=== PATIENT | female | born 1990 | race Caucasian/White ===

== ENCOUNTER 2018-04-30 16:37 | Emergency (ER) | payer OTHER ==
--- NOTE | 2018-04-30 17:42 | PHYS DOC ---
Adult General Chief Complaint Chief Complaint: HYPERTENSION HPI HPI 27-year-old female presents with hypertension and headache. Patient delivered a baby one week ago without complication. She has had intermittent hypertension the last 2 days 170s over 100. She also has had a headache since yesterday that has not gone away. She describes it as a global pressure. She has tried ibuprofen and it has not helped. Patient's vaginal bleeding has significantly decreased the last 36 hours and this is different than her first . She admits to anxiety at baseline these symptoms are very concerned. Her GLASS DRILLER advised she come to the emergency room for the hypertension. During my interview , the patient noticed she has urticaria forming on her neck and chest. She denies pruritus. She has changed skin lotions recently but has not had any problem prior to just now. She denies fever or chills. Review of Systems Review of Systems Constitutional: Denies fever or chills [] Eyes: Denies change in visual acuity, redness, or eye pain [] HENT: Denies nasal congestion or sore throat [] Respiratory: Denies cough or shortness of breath [] Cardiovascular: No additional information not addressed in HPI [] GI: Denies abdominal pain, nausea, vomiting, bloody stools or diarrhea [] : Denies dysuria or hematuria. vaginal bleeding--decreased [] Musculoskeletal: Denies back pain or joint pain [] Integument: urticaria [] Neurologic: Headache. No focal weakness or sensory changes [] Endocrine: Denies polyuria or polydipsia [] All other systems were reviewed and found to be within normal limits, except as documented in this note. Allergies Allergies Allergies Coded Allergies Type Severity Reaction Last Updated Verified No Known Drug Allergies 04/30/18 No Physical Exam Physical Exam Constitutional: Well developed, well nourished, no acute distress, non-toxic appearance. [] HENT: Normocephalic, atraumatic, bilateral external ears normal, oropharynx moist, no oral exudates, nose normal. [] Eyes: PERRLA, EOMI, conjunctiva normal, no discharge. [] Neck: Normal range of motion, no tenderness, supple, no stridor. [] Cardiovascular:Heart rate regular rhythm, no murmur [] Lungs & Thorax: Bilateral breath sounds clear to auscultation [] Abdomen: Bowel sounds normal, soft, no tenderness, no masses, no pulsatile masses. [] Skin: Erythematous patches on the patient's chest and back, some with central clearing consistent with urticaria.[] Back: No tenderness, no CVA tenderness. [] Extremities: No tenderness, no cyanosis, no clubbing, ROM intact, no edema. [] Neurologic: Alert and oriented X 3, normal motor function, normal sensory function, no focal deficits noted. [] Psychologic: Affect anxious, judgement normal, mood normal. [] Current Patient Data Lab Results Laboratory Tests Test 04/30/18 17:00 Glucose (Fingerstick) 111 mg/dL (70-99) H EKG EKG [] Radiology/Procedures Radiology/Procedures [] Impressions: 1. Post Delivery 1 week 2. Hypertension 3. Hypokalemia 3.3 4. Headache. Course & Med Decision Making Course & Med Decision Making Pertinent Labs and Imaging studies reviewed. (See chart for details) I am signing out the patient to Dr. Goldstein at 1800. Labs and treatment for headache and hypertension are pending. He will determine final disposition. See Dr. Hernandez chart for details- Pt. no hyperflexion, no gross protein in urine. Mild hypokalemia. Pt. reports marked improvement of headache. Clonidine patch 0.2 will be placed. Pt. call in am for follow up. Wear patch until follow up. Push fruit juices. Return if any concerns. [] Dragon Disclaimer Dragon Disclaimer This electronic medical record was generated, in whole or in part, using a voice recognition dictation system. Departure Departure: Referrals: RIVERA ODONNELL MD (PCP) YOANA HERNANDEZ DO Apr 30, 2018 17:41 BIN GOLDSTEIN MD Apr 30, 2018 19:35
[2018-04-30] MEDS ORDERED: KETOROLAC 30 MG/ML VIAL. IV ONE (17:45)
[2018-04-30] MEDS ORDERED: METOCLOPRAMIDE HCL 10 MG/2 ML VIAL. IV ONE (17:45)
[2018-04-30] MEDS ORDERED: diphenhydrAMINE 50 MG/ML VIAL IVP ONE (17:45)
[2018-04-30] MEDS ORDERED: IV NORMAL SALINE 1,000ML 1,000 ML IV ONE (17:45)
[2018-04-30 18:40] VITALS: BP 156/97
[2018-04-30 18:41] LABS: BASO # 0.1 x10^3/uL (0.0-0.2); BASO % 1 % (0-3); EOS # 0.1 x10^3/uL (0.0-0.7); EOS % 2 % (0-3); HEMATOCRIT 43.4 % (36.0-47.0); HEMOGLOBIN 15.1 g/dL (12.0-15.5); LYMPH # 1.1 x10^3/uL (1.0-4.8); LYMPH % 15 % (24-48); MEAN CORPUSCULAR HEMOGLOBIN 31 pg (25-35); MEAN CORPUSCULAR HGB CONC 35 g/dL (31-37); MEAN CORPUSCULAR VOLUME 89 fL (79-100); MONO # 0.6 x10^3/uL (0.0-1.1); MONO % 8 % (0-9); NEUT # 5.8 x10^3uL (1.8-7.7); NEUT % 76 % (31-73); PLATELET COUNT 232 x10^3/uL (140-400); RED BLOOD COUNT 4.89 x10^6/uL (3.50-5.40); RED CELL DISTRIBUTION WIDTH 14.2 % (11.5-14.5); WHITE BLOOD COUNT 7.6 x10^3/uL (4.0-11.0)
[2018-04-30 18:56] LABS: ALBUMIN 3.2 g/dL (3.4-5.0); ALBUMIN/GLOBULIN RATIO 0.8 (1.0-1.7); CREATININE 0.6 mg/dL (0.6-1.0); GFR 121.8; MAGNESIUM 1.9 mg/dL (1.8-2.4); POTASSIUM 3.3 mmol/L (3.5-5.1); TOTAL BILIRUBIN 0.3 mg/dL (0.2-1.0); TOTAL PROTEIN 7.2 g/dL (6.4-8.2)
[2018-04-30 19:06] LABS: CLARITY,URINE CLEAR; GLUCOSE,URINE NEG (NEG)
[2018-04-30 19:07] LABS: BACTERIA,URINE 0 /HPF (0-FEW); BILIRUBIN,URINE NEG (NEG); COLOR,URINE STRAW; NITRITE,URINE NEG (NEG); RBC,URINE RARE /HPF (0-2); SQUAMOUS EPITHELIAL CELL,UR FEW /LPF; UROBILINOGEN,URINE 0.2 mg/dL (0.2 mg/dL); WBC,URINE OCC /HPF (0-4)
[2018-04-30] MEDS ORDERED: cloNIDine TTS-2 1 PATCH PATCH TD ONE (19:30)
== END 2018-04-30 19:42 | disposition home or self-care (01) ==
LOC: ER 16:37
DX: O16.5 Unspecified maternal hypertension, complicating the puerperium (principal); O99.73 Diseases of the skin and subcutaneous tissue complicating the puerperium; E87.6 Hypokalemia; L50.9 Urticaria, unspecified; Z98.890 Other specified postprocedural states
CPT/HCPCS: 36415; 80053; 81001; 82947; 83735; 85025; 96374; 96375; 99283; J1200; J1885; J2765; J7030

== ENCOUNTER 2021-05-22 12:30 | Emergency (ER) | payer OTHER ==
[~2021-05-22] VITALS: Ht 167.6 cm; Wt 53.7 kg
[2021-05-22 12:30] VITALS: BP 126/80
[2021-05-22] MEDS ORDERED: KETOROLAC 15 MG/ML VIAL. IVP ONE (13:15)
[2021-05-22] MEDS ORDERED: IV NORMAL SALINE 1,000ML 1,000 ML IV ONE (13:15)
[2021-05-22 13:43] LABS: BACTERIA,URINE 0 /HPF (0-FEW); BILIRUBIN,URINE NEG (NEG); CLARITY,URINE CLEAR; COLOR,URINE YELLOW; GLUCOSE,URINE NEG (NEG); NITRITE,URINE NEG (NEG); SQUAMOUS EPITHELIAL CELL,UR MOD /LPF; UROBILINOGEN,URINE 0.2 mg/dL (0.2 mg/dL)
[2021-05-22 14:32] LABS: BASO % 1 % (0-3); EOS % 1 % (0-3); HEMATOCRIT 38.4 % (36.0-47.0); HEMOGLOBIN 12.7 g/dL (12.0-15.5); LYMPH # 1.1 x10^3/uL (1.0-4.8); LYMPH % 20 % (24-48); MEAN CORPUSCULAR HEMOGLOBIN 29 pg (25-35); MEAN CORPUSCULAR HGB CONC 33 g/dL (31-37); MEAN CORPUSCULAR VOLUME 89 fL (79-100); MONO # 0.4 x10^3/uL (0.0-1.1); MONO % 7 % (0-9); NEUT # 3.8 x10^3uL (1.8-7.7); NEUT % 72 % (31-73); PLATELET COUNT 227 x10^3/uL (140-400); RED BLOOD COUNT 4.32 x10^6/uL (3.50-5.40); RED CELL DISTRIBUTION WIDTH 14.9 % (11.5-14.5); WHITE BLOOD COUNT 5.3 x10^3/uL (4.0-11.0)
[2021-05-22 14:33] LABS: CREATININE 0.6 mg/dL (0.6-1.0); POTASSIUM 3.9 mmol/L (3.5-5.1)
--- NOTE | 2021-05-22 14:49 | RAD ---
EXAM: Abdomen and pelvis CT without intravenous contrast. HISTORY: Right flank pain. TECHNIQUE: Computed tomographic images of the abdomen and pelvis were obtained without contrast. Mult iplanar reformatting was performed. *One or more of the following individualized dose reduction techniques were utilized for this examina tion: 1. Automated exposure control. 2. Adjustment of the mA and/or kV according to patient size. 3. Use of iterative reconstruction technique. COMPARISON: None. FINDINGS: Evaluation of the lower thorax demonstrates a 2 mm nodule within the right lower lobe (seri es 2, image 3). There is a chest wall pectus deformity. No hepatic lesion is seen. The gallbladder is contracted due to the postprandial status the patient. The pancreas, spleen and adrenal glands are u nremarkable. There is no evidence of nephroureterolithiasis. There is no hydronephrosis. The bladder is unremarkab le. There is no appendicitis. There is no bowel obstruction. The bladder, uterus and adnexal regions are unremarkable. The aorta is normal in caliber. There is no acute or suspicious osseous finding. IMPRESSION: 1. No acute abdominal or pelvic finding. 2. Tiny right lower lobe pulmonary nodule. This likely benign and of no clinical significance in a pa tient of this age. 3. Incidental chest wall pectus deformity. Electronically signed by: Joelle Dove MD (05/22/2021 2:47 PM) [facility]
--- NOTE | 2021-05-22 14:52 | PHYS DOC ---
Past History Past Medical History: No Pertinent History (LORI GONZALEZ APRN) Past Surgical History: No Surgical History (LORI GONZALEZ APRN) Alcohol Use: Rarely Drug Use: None (LORI GONZALEZ APRN) General Adult EDM: Chief Complaint: FLANK PAIN HPI: HPI: Patient is a 30-year-old female who presents with right-sided flank pain that radiates into her right lower abdomen. Patient states that pain has been coming and going for the last week. Denies fever, denies nausea/vomiting, denies pain with urination. Patient denies taking anything at home for pain. Patient states she went to her DIE MOUNTER yesterday and had left a urine sample. Patient reports they called back and said she was positive for blood in her urine. LMP was 04/30. No medical history. (LROI GONZALEZ APRN) Review of Systems: Review of Systems: ROS At least 10 ROS systems have been reviewed and are negative except as documented in the HPI. General: Negative except as outlined in HPI above. Skin: Negative except as outlined in HPI above. HEENT: Negative except as outlined in HPI above. Neck: Negative except as outlined in HPI above. Respiratory: Negative except as outlined in HPI above.. Cardiovascular: Negative except as outlined in HPI above. Abdomen: Negative except as outlined in HPI above. : Negative except as outlined in HPI above. Back/MSK: Negative except as outlined in HPI above. Neuro: Negative except as outlined in HPI above. Psych: Negative except as outlined in HPI above. (LORI GONZALEZ APRN) Current Medications: Current Meds: Current Medications Medications (Trade) Dose Ordered Sig/Cristopher Start Time Stop Time Status Last Admin Dose Admin Ketorolac Tromethamine (Toradol 15mg Vial) 15 mg 1X ONCE 05/22/21 13:15 05/22/21 13:27 DC Sodium Chloride 1,000 ml @ 1,000 mls/hr 1X ONCE 05/22/21 13:15 05/22/21 14:14 DC (LORI GONZALEZ APRN) Allergies: Allergies: Allergies Coded Allergies Type Severity Reaction Last Updated Verified No Known Drug Allergies 04/30/18 No (LORI GONZALEZ APRN) Physical Exam: PE: Constitutional: Well developed, well nourished, no acute distress, non-toxic appearance. [] HENT: Normocephalic, atraumatic, bilateral external ears normal, oropharynx moist, no oral exudates, nose normal. [] Eyes: PERRLA, EOMI, conjunctiva normal, no discharge. [] Neck: Normal range of motion, no tenderness, supple, no stridor. [] Cardiovascular:Heart rate regular rhythm, no murmur [] Lungs & Thorax: Bilateral breath sounds clear to auscultation [] Abdomen: Bowel sounds normal, soft, no tenderness Skin: Warm, dry, no erythema, no rash. [] Back: No tenderness, right CVA tenderness. [] Extremities: No tenderness, no cyanosis, no clubbing, ROM intact, no edema. [] Neurologic: Alert and oriented X 3, normal motor function, normal sensory funct ion, no focal deficits noted. [] Psychologic: Affect normal, judgement normal, mood normal. [] (LORI GONZALEZ APRN) Current Patient Data: Labs: Laboratory Tests Test 05/22/21 12:47 05/22/21 12:56 05/22/21 14:06 Urine Collection Type Unknown Urine Color Yellow Urine Clarity Clear Urine pH 5.5 Urine Specific [place] >=1.030 Urine Protein Neg (NEG-TRACE) Urine Glucose (UA) Neg mg/dL (NEG) Urine Ketones (Stick) Neg mg/dL (NEG) Urine Blood Trace (NEG) Urine Nitrite Neg (NEG) Urine Bilirubin Neg (NEG) Urine Urobilinogen Dipstick 0.2 mg/dL (0.2 mg/dL) Urine Leukocyte Esterase Neg (NEG) Urine RBC 1-2 /HPF (0-2) Urine WBC 1-4 /HPF (0-4) Urine Squamous Epithelial Cells Mod /LPF Urine Bacteria 0 /HPF (0-FEW) Urine Mucus Slight /LPF POC Urine HCG, Qualitative hcg negative (Negative) White Blood Count 5.3 x10^3/uL (4.0-11.0) Red Blood Count 4.32 x10^6/uL (3.50-5.40) Hemoglobin 12.7 g/dL (12.0-15.5) Hematocrit 38.4 % (36.0-47.0) Mean Corpuscular Volume 89 fL (79-100) Mean Corpuscular Hemoglobin 29 pg (25-35) Mean Corpuscular Hemoglobin Concent 33 g/dL (31-37) Red Cell Distribution Width 14.9 % (11.5-14.5) H Platelet Count 227 x10^3/uL (140-400) Neutrophils (%) (Auto) 72 % (31-73) Lymphocytes (%) (Auto) 20 % (24-48) L Monocytes (%) (Auto) 7 % (0-9) Eosinophils (%) (Auto) 1 % (0-3) Basophils (%) (Auto) 1 % (0-3) Neutrophils # (Auto) 3.8 x10^3uL (1.8-7.7) Lymphocytes # (Auto) 1.1 x10^3/uL (1.0-4.8) Monocytes # (Auto) 0.4 x10^3/uL (0.0-1.1) Eosinophils # (Auto) 0.0 x10^3/uL (0.0-0.7) Basophils # (Auto) 0.0 x10^3/uL (0.0-0.2) Sodium Level 138 mmol/L (136-145) Potassium Level 3.9 mmol/L (3.5-5.1) Chloride Level 103 mmol/L (98-107) Carbon Dioxide Level 28 mmol/L (21-32) Anion Gap 7 (6-14) Blood Urea Nitrogen 15 mg/dL (7-20) Creatinine 0.6 mg/dL (0.6-1.0) Estimated GFR (Cockcroft-Gault) 119.0 Glucose Level 84 mg/dL (70-99) Calcium Level 9.0 mg/dL (8.5-10.1) Vital Signs: Vital Signs Date Time Temp Pulse Resp B/P (MAP) Pulse Ox O2 Delivery O2 Flow Rate FiO2 05/22/21 12:30 104 16 126/80 (95) 99 Room Air (LORI GONZALEZ APRN) EKG: EKG: [] (LORI GONZALEZ APRN) Radiology/Procedures: Radiology/Procedures: []EXAM: Abdomen and pelvis CT without intravenous contrast. HISTORY: Right flank pain. TECHNIQUE: Computed tomographic images of the abdomen and pelvis were obtained without contrast. Multiplanar reformatting was performed. *One or more of the following individualized dose reduction techniques were utilized for this examination: 1. Automated exposure control. 2. Adjustment of the mA and/or kV according to patient size. 3. Use of iterative reconstruction technique. COMPARISON: None. FINDINGS: Evaluation of the lower thorax demonstrates a 2 mm nodule within the right lower lobe (series 2, image 3). There is a chest wall pectus deformity. No hepatic lesion is seen. The gallbladder is contracted due to the postprandial status the patient. The pancreas, spleen and adrenal glands are unremarkable. There is no evidence of nephroureterolithiasis. There is no hydronephrosis. The bladder is unremarkable. There is no appendicitis. There is no bowel obstruction. The bladder, uterus and adnexal regions are unremarkable. The aorta is normal in caliber. There is no acute or suspicious osseous finding. IMPRESSION: 1. No acute abdominal or pelvic finding. 2. Tiny right lower lobe pulmonary nodule. This likely benign and of no clinical significance in a patient of this age. 3. Incidental chest wall pectus deformity. Electronically signed by: Joelle Dove MD (05/22/2021 2:47 PM) [facility] (LORI GONZALEZ APRN) Heart Score: C/O Chest Pain: No Risk Factors: Risk Factors: DM, Current or recent (<one month) smoker, HTN, HLP, family history of CAD, obesity. Risk Scores: Score 0 - 3: 2.5% MACE over next 6 weeks - Discharge Home Score 4 - 6: 20.3% MACE over next 6 weeks - Admit for Clinical Observation Score 7 - 10: 72.7% MACE over next 6 weeks - Early Invasive Strategies (LORI GONZALEZ APRN) Course & Med Decision Making: Course & Med Decision Making Pertinent Labs and Imaging studies reviewed. (See chart for details) [] 30-year-old female presents with right-sided flank pain that radiates into her right lower abdomen. Afebrile. Denies dysuria or any other vaginal comp laints. Work-up in ER consist of blood work, urinalysis, urine , CT abdomen without contrast, Toradol for discomfort. UA negative for infection. Positive trace blood. CT abdomen pelvis is unremarkable. Discussed results with patient. Advised pat ient she may have already passed a kidney stone and having residual pain. Patient should take ibuprofen at home for discomfort. Discussed return precautions. Patient is hemodynamically stable upon disposition. (GONZALEZ,LORI Santos Disclaimer: Tom Disclaimer: This electronic medical record was generated, in whole or in part, using a voice recognition dictation system. (LORI GONZALEZ APRN) Attending Co-Sign The patient was seen and interviewed as well as examined at the bedside. The chart was reviewed. The case was discussed. Agree with the plan of care. (YOANA HERNANDEZ DO) Departure Departure: Impression: Primary Impression: Flank pain Additional Impression: Hematuria Qualified Codes: R31.9 - Hematuria, unspecified Disposition: HOME / SELF CARE / HOMELESS Condition: STABLE Referrals: JOELLE ODONNELL MD (PCP) Patient Instructions: Flank Pain, [id number] Additional Instructions: You were seen in the emergency room for right-sided flank pain. CT of your abdomen was unremarkable. Your urine was positive for blood but no signs of infection. You can take ibuprofen at home for pain. Please follow-up with your PCP if symptoms do not resolve. Return to the emergency room with worsening symptoms or concerns. EMERGENCY DEPARTMENT GENERAL DISCHARGE INSTRUCTIONS Thank you for coming to [facility] (ED) today and trusting us with you care. We trust that you had a positivie experience in our Emergency Department. If you wish to speak to the department management, you may call the director at [phone]. YOUR FOLLOW UP INSTRUCTIONS ARE FOLLOWS: 1. Do you have a private Doctor? If you do not have a private doctor, please ask for a resource list of physicians or clinics that may be able to assist you with follow up care. 2. The Emergency Physician has interpreted your x-rays. The X-Ray specialist will also review them. If there is a change in the findings, you will be notified in 48 hours when at all possible. 3. A lab test or culture has been done, your results will be reviewed and you will be notified if you need a change in treatment. ADDITIONAL INSTRUCTIONS AND INFORMATION: 1. Your care today has been supervised by a physician who is specially trained in emergency care. Many problems require more than one evaluation for a complete diagnosis and treatment. We recommend that you schedule your follow up appointment as recommended to ensure complete treatment of you illness or injury. If you are unable to obtain follow up care and continue to have a problem, or if your condition worsens, we recommend that you return to the ED. 2. We are not able to safely determine your condition over the phone nor are we able to give sound medical advice over the phone. For these safety reasons, if you call for medical advice we will ask you to come to the ED for further evaluation. 3. If you have any questions regarding these discharge instructions please call the ED at [phone]. SAFETY INFORMATION: In the interest of safety, wellness, and injury prevention; we encourage you to wear your sealbelt, if you smoke; quite smoking, and we encourage family to use a protective helmet for bicycling and other sporting events that present an increased risk for head injury. IF YOUR SYMPTOMS WORSEN OR NEW SYMPTOMS DEVELOP, OR YOU HAVE CONCERNS ABOUT YOUR CONDITION; OR IF YOUR CONDITION WORSENS WHILE YOU ARE WAITING FOR YOUR FOLLOW UP APPOINTMENT; EITHER CONTACT YOUR PRIMARY CARE DOCTOR, THE PHYSICIAN WHOSE NAME AND NUMBER YOU WERE GIVEN, OR RETURN TO THE ED IMMEDIATELY. Scripts Dexamethasone (DEXAMETHASONE) 4 Mg Tablet 4 TAB PO DAILY for SCIATICA for 7 Days, #7 TAB Prov: LORI GONZALEZ APRN 05/22/21 Cyclobenzaprine Hcl (CYCLOBENZAPRINE HCL) 10 Mg Tablet 1 TAB PO TID for SCIATICA for 5 Days, #15 TAB Prov: LORI GONZALEZ APRN 05/22/21 LORI GONZALEZ APRN May 22, 2021 14:52 YOANA HERNANDEZ DO May 24, 2021 10:25
[2021-05-22] MEDS ORDERED: CYCL10TA19 PO (15:25)
[2021-05-22] MEDS ORDERED: DEXA4TAB PO (15:30)
== END 2021-05-22 15:29 | disposition home or self-care (01) ==
LOC: ER 12:30
DX: R10.9 Unspecified abdominal pain (principal); R31.9 Hematuria, unspecified
CPT/HCPCS: 36415; 74176; 80048; 81001; 81025; 85025; 96374; 99284; J1885